=== PATIENT | male | born 2000 | race Caucasian/White ===

== ENCOUNTER 2018-04-04 13:40 | Emergency (ER) | payer OTHER ==
[~2018-04-04] VITALS: Ht 185.4 cm; Wt 70.7 kg
[2018-04-04 14:00] VITALS: BP 137/81
[2018-04-04] MEDS ORDERED: DEXAMETHASONE 4 MG/ML, 1ML ONE (14:28)
[2018-04-04] MEDS ORDERED: DEXAMETHASONE 4 MG/ML, 1ML PO ONE (14:30)
== END 2018-04-04 15:28 | disposition home or self-care (01) ==
LOC: ED 15:15
DX: J02.0 Streptococcal pharyngitis (principal)
CPT/HCPCS: 70360; 99283; J1100